=== PATIENT | female | born 1955 | race Caucasian/White ===

== ENCOUNTER 2017-05-15 20:02 | Emergency (ER) | payer OTHER ==
[~2017-05-15] VITALS: Ht 157.5 cm; Wt 70.3 kg
[~2017-05-15 20:02] MED LIST: CEPH500C PO; IBUP600T44 PO
[2017-05-15 20:12] VITALS: Ht 157.5 cm; Wt 70.3 kg
[2017-05-15] MEDS ORDERED: ACETAMINOPHEN 500 MG TAB PO STA (20:45)
[2017-05-15] MEDS ORDERED: B-COTAB18 PO (21:39)
[2017-05-15] MEDS ORDERED: ASPI81TA28 PO (21:39)
[2017-05-15] MEDS ORDERED: PRLSR20 PO (21:39)
--- NOTE | 2017-05-15 22:17 | DIAGNOSTIC IMAGING REPORT ---
TWO VIEW CHEST CLINICAL HISTORY: Right chest wall injury. FINDINGS: PA and lateral chest radiographs are obtained. No prior studies are available for comparison at the time of dictation. The heart is top normal for projection. The mediastinal contour is within normal limits.. The lungs and pleural spaces are clear. There is no pneumothorax. The skeletal structures are osteopenic. Degenerative change is noted throughout the thoracic spine. Cholestatic clips are seen in the right upper quadrant. IMPRESSION: No active disease in the chest. Electronically signed by: Fadi Anguiano M.D. 05/15/2017 10:15 PM Dictated Date/Time: 05/15/2017 10:14 PM
--- NOTE | 2017-05-15 22:18 | DIAGNOSTIC IMAGING REPORT ---
RIGHT SHOULDER 3 VIEWS CLINICAL HISTORY: Right shoulder pain and injury. FINDINGS: 3 views of the right shoulder are obtained. No prior studies are available for comparison at the time of dictation. The skeletal structures are osteopenic. There is no radiographic evidence of fracture or dislocation in the right shoulder. Mild productive degenerative change is seen at the acromioclavicular articulation. The glenohumeral joint is preserved. The overlying soft tissues are within normal limits. Imaged right lung parenchyma appears clear. IMPRESSION: Osteopenia and mild degenerative change as above. There is no radiographic evidence of fracture or dislocation in the left shoulder. Electronically signed by: Fadi Anguiano M.D. 05/15/2017 10:17 PM Dictated Date/Time: 05/15/2017 10:16 PM
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
[2017-05-15 22:59] VITALS: BP 138/78; PULSE 78; TEMP 36.7; O2SAT 99
== END 2017-05-15 23:00 | disposition home or self-care (01) ==
LOC: C.EDB 20:03 → C.EDD 23:00
DX: S20.211A Contusion of right front wall of thorax, initial encounter (principal); M25.511 Pain in right shoulder; Y92.89 Other specified places as the place of occurrence of the external cause; Y93.89 Activity, other specified; K21.9 Gastro-esophageal reflux disease without esophagitis; Z79.82 Long term (current) use of aspirin; Z79.899 Other long term (current) drug therapy